=== PATIENT | female | born 1950 | race Caucasian/White ===

== ENCOUNTER → 2017-12-12 | Outpatient (CLI) | payer MEDICARE, BC ==
[2017-12-12 09:12] LABS: Basophils # (A) 0.1 k/uL (0-0.2); Basophils % (A) 1 %; Eosinophils # (A) 0.1 k/uL (0-0.7); Eosinophils % (A) 2 %; HCT 38.2 % (34.0-46.0); HGB 13.1 gm/dL (11.4-16.0); Lymphocytes # (A) 1.6 k/uL (1.0-4.8); Lymphocytes % (A) 27 %; MCH 29.4 pg (25.0-35.0); MCHC 34.3 g/dL (31.0-37.0); MCV 85.7 fL (80.0-100.0); Mean Platelet Volume 6.5; Monocytes # (A) 0.3 k/uL (0-1.0); Monocytes % (A) 5 %; Neutrophils % (A) 64 %; Platelet Count 247 k/uL (150-450); RBC 4.46 m/uL (3.80-5.40); WBC 6.2 k/uL (3.8-10.6)
--- NOTE | 2017-12-12 09:24 | XR ---
EXAMINATION TYPE: XR chest 2V DATE OF EXAM: 12/12/2017 COMPARISON: NONE HISTORY: Preoperative examination. TECHNIQUE: Frontal and lateral views of the chest are obtained. FINDINGS: There is no focal air space opacity, pleural effusion, or pneumothorax seen. Mild left hem idiaphragm elevation and right hemidiaphragm eventration are incidentally seen. The cardiac silhouet te size is within normal limits. The osseous structures are intact. Minimal multilevel degenerative changes of the thoracic spine are seen. IMPRESSION: No acute cardiopulmonary process.
[2017-12-12 09:25] LABS: Calcium 9.9 mg/dL (8.4-10.2); Potassium 3.9 mmol/L (3.5-5.1)
[2017-12-12 09:26] LABS: Prothrombin Time 9.6 sec (9.0-12.0)
[2017-12-12 09:35] LABS: Partial Thromboplastin Time 21.1 sec (22.0-30.0)
[2017-12-12 11:14] LABS: Amorphous Sediment,Urine Occasional /hpf; Appearance,Urine Cloudy (Clear); Bacteria,Urine Rare /hpf; Bilirubin,Urine Negative (Negative); Blood,Urine Negative (Negative); Color,Urine Yellow; Glucose,Urine (UA) Negative (Negative); Hyaline Casts,Urine 7 /lpf (0-2); Ketones,Urine Trace (Negative); Leukocyte Esterase,Urine Small (Negative); Mucus,Urine Few /hpf; Nitrite,Urine Negative (Negative); Protein,Urine 1+ (Negative); RBC,Urine <1 /hpf (0-5); Specific Gravity,Urine 1.026 (1.001-1.035); Squamous Epithelial Cell,Urine 16 /hpf (0-4); WBC,Urine 5 /hpf (0-5)
== END | disposition home or self-care (01) ==
LOC: LABPAT 08:20
PROVIDERS: ATTEND Orthopaedic Surgery Orthopaedic Surgery of the Spine
DX: Z01.818 Encounter for other preprocedural examination (principal); Z01.812 Encounter for preprocedural laboratory examination; M48.061 Spinal stenosis, lumbar region without neurogenic claudication; Z79.01 Long term (current) use of anticoagulants
CPT/HCPCS: 36415; 71046; 80048; 81001; 85025; 85610; 85730; 86850; 86900; 86901; 87070; 93005

== ENCOUNTER 2017-12-22 09:28 | Inpatient (IN) | payer MEDICARE, BC ==
[2017-12-10 13:17] VITALS: BMI 35.7
[~2017-12-22 09:28] MED LIST: BACITRACIN 50,000 UNIT, POLYMYXIN B 500,000 UNIT in SODIUM CHLORIDE 0.9% IRRIGATIO 1,00... IRRIGATION ONE; DEXAMETHASONE SOD PHOSPHATE 10 MG/ML 1 ML VIAL IV ONE; LIDOCAINE 1% 20 ML VIAL (10MG/ML) FOR IV START INTRADERMA PRN; MIDAZOLAM 2 MG/2 ML VIAL IV PRN; SCOPOLAMINE 1.5MG/72HR PATCH TRANSDERM ONE; ceFAZolin IN SWFI 2 GM/20 ML SYRINGE IVP ONE; fentaNYL (PF) 50 MCG/ML 2 ML AMP IV PRN
[2017-12-22] MEDS: LACTATED RINGERS 1,000 ML IV SCH ×2 (10:55→18:16)
[2017-12-22] MEDS ORDERED: ONDANSETRON 4 MG/2 ML VIAL IVP ONE (11:25)
[2017-12-22] MEDS ORDERED: ONDANSETRON 4 MG/2 ML VIAL ONE (11:28)
[2017-12-22] MEDS ORDERED: MIDAZOLAM 2 MG/2 ML VIAL ONE ×2 (11:33→12:28)
[2017-12-22] MEDS ORDERED: VECURONIUM 10 MG VIAL IV ONE (12:28)
[2017-12-22] MEDS ORDERED: ePHEDrine SULFATE/0.9% NACL/PF 50 MG/5 ML SYRINGE IV ONE (12:28)
[2017-12-22] MEDS ORDERED: PROPOFOL 10 MG/ML 20 ML VIAL IV ONE (12:28)
[2017-12-22] MEDS ORDERED: NEOSTIGMINE 1 MG/ML 10 ML VIAL ONE (12:28)
[2017-12-22] MEDS ORDERED: HYDROmorphone (PF) 1 MG/ML ONE (12:28)
[2017-12-22] MEDS ORDERED: HEPARIN SODIUM,PORCINE 10,000 UNIT/ML 1 ML VIAL ONE (12:28)
[2017-12-22] MEDS ORDERED: fentaNYL (PF) 50 MCG/ML 2 ML AMP ONE (12:28)
[2017-12-22] MEDS ORDERED: LIDOCAINE 1% INJ 10MG/ML (20 ML MDV) ONE (12:28)
[2017-12-22] MEDS ORDERED: KETAMINE 10 MG/ML 20 ML VIAL ONE (12:28)
[2017-12-22] MEDS ORDERED: LACTATED RINGERS 1,000 ML BAG IV ONE (12:28)
[2017-12-22] MEDS ORDERED: GLYCOPYRROLATE 0.2 MG/ML 2 ML VIAL ONE (12:28)
[2017-12-22] MEDS ORDERED: BUPIVACAINE (PF) 0.5% 30 ML VIAL SQ ONE (13:12)
[2017-12-22] MEDS ORDERED: GELATIN SPONGE,ABSORB (SMALL) 1 EACH SPONGE TOPICAL ONE (13:22)
[2017-12-22] MEDS ORDERED: THROMBIN (BOVINE) 5,000 UNIT VIAL TOPICAL ONE (13:22)
[2017-12-22] MEDS ORDERED: LACTATED RINGERS 1,000 ML IV ONE ×2 (14:03→16:29)
[2017-12-22] MEDS ORDERED: BENZOCAINE/MENTHOL LOZENG 1 EACH LOZENGE MUCOUS MEM PRN (17:03)
[2017-12-22] MEDS ORDERED: HYDROcodone/APAP 5-325MG 1 EACH TAB PO PRN (17:03)
[2017-12-22] MEDS ORDERED: ONDANSETRON 4 MG/2 ML VIAL IVP PRN (17:03)
[2017-12-22] MEDS ORDERED: HYDROmorphone 0.5 MG/0.5 ML SYRINGE IVP PRN (17:03)
[2017-12-22] MEDS ORDERED: MAGNESIUM HYDROXIDE 2,400 MG/10 ML CUP PO PRN (17:03)
[2017-12-22] MEDS ORDERED: FAMOTIDINE 20 MG TAB PO PRN (17:07)
--- NOTE | 2017-12-22 17:21 | P.OP ---
Date of Procedure: 12/22/17 Preoperative Diagnosis: Degenerative spinal scoliosis Spinal stenosis L2-3 L3 4 L4 5 Degenerative disc disease Neurogenic claudication Low back pain Lower extremity radiculopathy Postoperative Diagnosis: Degenerative spinal scoliosis Spinal stenosis L2-3 L3 4 L4 5 Degenerative disc disease Neurogenic claudication Low back pain Lower extremity radiculopathy Anesthesia: GETA Pathology: none sent Condition: stable Disposition: PACU Description of Procedure: DESCRIPTION OF PROCEDURE(S): BRIEF OPERATIVE NOTE Preoperative Diagnosis: Degenerative spinal scoliosis Spinal stenosis L2-3 L3 4 L4 5 Degenerative disc disease Neurogenic claudication Low back pain Lower extremity radiculopathy Postoperative Diagnosis: Same Procedure: Minimally invasive Laminectomy and decompression bilaterally L2-3 L3 4 L4 5 Minimally invasive Posterior lateral decompression and facet fusion L2-3 L3 4 L4 5 Minimally invasive Transforaminal lumbar interbody fusion for a 360 fusion L2-3 L3 4 L4 5 Discectomy for decompression L3 4 L4 5 Placement of interbody graft L3 4 L4 5 Local autogenous bone grafting Harvesting of bone marrow aspirate via the pedicle of L2 on the right Use of Cell Saver Use of bone graft extenders Surgeon: Dr. Polanco Feather Drying Machine Operator: Didier REYES who is present throughout the entire the case persistence during positioning, dissection, exposure, visualization, and all crucial elements of the case as well as closure. Anesthesia: General anesthesia Estimated blood loss: approximately 500 mL with 200 given back through Cell Saver Complications: None apparent Components implanted: K2M minimally invasive [place] pedicle screw system with 8 screws measuring 6.5 x 45 mm in length and 2 rods and 2 [place] interbody titanium cages with 1 osteal amp sponge and 30 mL of DBX bone fibers to supplement the local autogenous bone graft and bone marrow aspirate Disposition: To recovery room in good stable condition. OPERATIVE INDICATIONS The patient has had long-standing issues in their lower back and lower extremities. she is found to have degenerative scoliosis with asymmetric disc degeneration and spinal stenosis which correlated well with her low back and lower extremity symptoms. She had been through extensive conservative treatment however failed conservative management and exhausted conservative care. The patient has been through conservative treatment. We discussed various treatment options including surgery, and the patient wishes to proceed with surgery We discussed the risk, patient's alternatives and benefits of surgery including but not limited to, risk of bleeding risk of infection, risk of need for further surgery, risk of decreased, loss of motion, muscle function , malunion nonunion, hardware failure, nerve damage, paralysis, heart attack, blindness and . OPERATIVE SUMMARY After discussing all the risks, patient alternatives and benefits at length, the patient elected to proceed with surgical intervention, signed informed consent, and presented for their procedure. The patient was seen and examined in the preoperative holding area and the surgical site was marked. The patient was given antibiotics and brought to the operating room. The patient was sedated and intubated by anesthesia in standard fashion. The patient was positioned on to the operating room table in a prone position on the appropriate frame which was well-padded and well molded. We were careful to pad any bony prominences and pressure points. We were careful to maintain the patient's cervical spine and good neutral alignment and position throughout. The patient was prepped and draped in a normal standard fashion. An appropriate timeout and keystone protocol performed. We were able to proceed with the surgery. The local wound area was infiltrated with local anesthetic. I was able utilize C-arm guidance to establish appropriate position over the pedicles bilaterally at the appropriate levels at L2-3 4 and 5 . With the appropriate levels confirmed was able to make small stab incisions over the appropriate pedicle sites bilaterally. Utilizing C-arm in his house able to establish a Jamshidi needle over the lateral aspect of the pedicle and advanced the trocar into the pedicle being careful not to breech superiorly inferiorly medially or laterally. Position was confirmed regularly with AP and lateral images on C-arm. I was able to establish the trocar into the pedicle appropriately into the posterior aspect of the vertebral body bilaterally at the appropriate levels. at L2 on the right I was able to draw up approximately 20 mL of bone marrow aspirate from the vertebral body to be used to supplement the bone grafts. I was able place trochars appropriately bilaterally at L2 3 4 and 5.This was done at each of the pedicle positions and each of the vertebrae. I was able place the guidewire into the trocar and into the vertebral body appropriately under C-arm guidance. Dissection was taken down over the wire to the appropriate starting position for the screw placed. The appropriate length screw was chosen, threaded over the guidewire and screwed appropriately into the pedicle and vertebral body under C-arm guidance in excellent alignment and position with good bony purchase. This is done at each of the screw sites at the appropriate levels of L2-3 4 and 5 . With the screws intact I extended the incision to connect the screw hole sites on the most symptomatic side on the right . I started at L4 5 and then moved up to L3 4. I dissected down to establish access over the pars and lamina to the base of the spinous process. I was able to expose the facet joint. The capsule the facet was taken down and showed some facet arthrosis at the joint. I was able to use a combination of curettes and Kerrison rongeurs and a high- speed drill to take down the facet joint and do a facetectomy. Partial laminectomy was also performed. I was able get excellent foraminal decompression and central decompression with undermining across midline to perform a laminectomy centrally and contralaterally. As able get good central decompression. The ligamentum flavum was taken down to further decompress centrally and at bilateral neural foramen. I was able to perform this decompression at L2-3 and L3 4 and L4 5. The disc was fairly neutral at L2-3 and I decided to forego the discectomy and interbody device. At L3 4 and L4 5 and proceeded with discectomy and interbody fusion. I was able to expose the disc space and visualize the traversing nerve root. Note was made of some disc protrusion at the level causing further compression of the nerve root. I was able to establish a annulotomy at the appropriate level protecting soft tissue and neural structures. Note was made of some disc desiccation at the disc. I performed a complete discectomy with accommodation of curettes and rasps and scrapers. I was able get good endplate preparation at the disc space. I sized for the appropriate size interbody spacer protecting the soft tissue and neural structures. The wound was copiously irrigated and suctioned dry. There is no evidence of any dural tear or leak. I was able to pack the disc space with local autogenous bone graft as well as a small amount of bone graft which was also placed into the interbody cage itself. Protecting the soft tissue structures and neural structures I was able place the interbody cage in good alignment and good position with good fit and fill at the interbody spaceAt L3 4 and L4 5 . His issues was confirmed with C- arm guidance. Good hemostasis maintained. There is no evidence of any dural tear or leak. The wound was irrigated and suctioned dry. With the hardware intact, intraoperative C-arm imaging was again taken which showed good alignment and position of the hardware at the appropriate levelsat L2-3 L3 4 and L4 5 . We were then able to measure, contour and place the rods and appropriate hardware bilaterally. I was able to place capcrews, tighten them down, and torque them with the torque screwdriver appropriately. With this intact I was able to place the local autogenous bone graft with additional bone graft enhancer as necessary into the posterior lateral gutters over the decorticated transverse processes. The remainder of the bone graft was placed over the facet joint which was decorticated appropriately at L2-3 L3 4 and L4 5 on the contralateral side after taking down the facet joint capsule. With the bone graft intact, a stable construct, and good decompression at the appropriate levels, we were able to proceed with closure. Good hemostasis was maintained. There is no evidence of dural tear or leak. The fascia was closed for a watertight closure. he subcuticular tissue was closed with absorbable suture. The wound was cleaned and dried and dressed with the appropriate dressing. The drapes were broken down. The patient was gently rolled back onto their hospital bed being careful to maintain their cervical spine and good neutral alignment and position. They were woken up by anesthesia, extubated, and brought to the recovery room in good stable condition. The patient will be admitted to the hospital for appropriate postoperative care , medical management and monitoring. We will continue to follow them closely about the postoperative course.
[2017-12-22] MEDS: HYDROmorphone 0.5 MG/0.5 ML SYRINGE IVP PRN ×5 (18:17→23:35)
[2017-12-22] MEDS: SODIUM CHLORIDE 0.9% 1,000 ML IV SCH (19:49)
[2017-12-22] MEDS: ceFAZolin IN SWFI 2 GM/20 ML SYRINGE IVP SCH (19:49)
[2017-12-22] MEDS: DOCUSATE 100 MG CAP PO SCH (21:10)
[2017-12-22] MEDS: cycloSPORINE 0.05% OPHTH 0.4 ML DROPERETTE BOTH EYES SCH (21:10)
[2017-12-22] MEDS: NITROFURANTOIN MONOHYD/M-CRYST 100 MG CAP PO SCH (21:10)
[2017-12-23] MEDS: HYDROcodone/APAP 5-325MG 1 EACH TAB PO PRN ×5 (01:51→22:33)
[2017-12-23] MEDS: ceFAZolin IN SWFI 2 GM/20 ML SYRINGE IVP SCH (03:49)
[2017-12-23] MEDS: HYDROmorphone 0.5 MG/0.5 ML SYRINGE IVP PRN (03:51)
--- NOTE | 2017-12-23 04:29 | CONS ---
CONSULTATION DATE OF SERVICE: 12/22/2017 REASON FOR CONSULTATION: Advice regarding hypertension, and multiple medical issues requested by Dr. Polanco. HISTORY OF PRESENT ILLNESS: This 67-year-old woman with a past medical history of GERD, hypertension, DJD being followed by Dr. Coy Cool in the outpatient setting underwent minimally invasive laminectomy and decompression bilaterally L2-3, L3-4, L4-5 for severe degenerative joint disease and spinal stenosis L2-3, L4-L5 at L3-4, L4-[address] Polanco. The patient being closely monitored. There is no history of chest pain. No palpitations, headache, loss of consciousness, nausea and diarrhea at this time. PAST MEDICAL HISTORY: GERD, hypertension and DJD. MEDICATIONS: Prior to admission include home medications are: 1. Restasis 1 application both eyes b.i.d. 2. Coenzyme Q 200 mg p.o. daily. 3. Macrobid 1 tab p.o. b.i.d. 4. Toprol-XL 25 mg. 5. Cozaar 50 mg p.o. 6. Claritin 10 mg p.o. daily. 7. Motrin 600 mg q.6h p.r.n. 8. HydroDIURIL 25 mg p.o. daily. 9. Fish oil 1 p.o. daily. 10.Pepcid 20 mg b.i.d. p.r.n. 11.Colace 100 mg p.o. q.h.s. 12.Vitamin D3 2000 daily. 13.Vitamin D3 1 tab p.o. daily. 14.Aspirin 81 mg p.o. daily. ALLERGIES: NIACIN AND LISINOPRIL AND SCALLOPS. FAMILY HISTORY: History of cancer in the family. SOCIAL HISTORY: No history of smoking. No history of alcohol intake. REVIEW OF SYSTEMS: ENT: No diminished vision or hearing. Cardio system: No angina or palpitations. Respiratory: No cough or hemoptysis. GI no nausea. : No dysuria or hematuria. Nervous system: No numbness or weakness. Allergy/Immunology: No asthma or hayfever. Musculoskeletal as mentioned earlier. Hematology no history of anemia. Endocrine no history of diabetes or hypothyroidism. Constitutional: As mentioned earlier. Dermatology: Negative. Rheumatology: Negative. Psychiatry: As mentioned earlier. PHYSICAL EXAMINATION: Alert oriented x2. Pulse is 53, blood pressure 103/64, respirations normal. Pulse ox 100% on room air. HEENT: Conjunctivae normal. Oral mucosa moist. NECK is no jugular venous distention. No carotid bruit. No lymph node enlargement. CARDIOVASCULAR: S1, S2 muffled. RESPIRATIONS: Breath sounds diminished in the bases. No rhonchi and no crackles. ABDOMEN: Soft, nontender. LEGS: No edema and no swelling. CENTRAL NERVOUS SYSTEM: No focal deficits. BACK: Status post surgery. LABS: Done recently. CBC and BMP outpatient within normal limits. UA noted. ASSESSMENT: 1. Status post laminectomy and decompression L2-3, L3-4, L4-5 for severe degenerative joint disease and spinal stenosis. 2. Hypertension. 3. History of gastroesophageal reflux disease. 4. Degenerative joint disease. RECOMMENDATIONS AND DISCUSSION: In this 67-year-old woman who presented with multiple complex medical issues at this time I recommend continue the current medications. Resume the home medications. DVT prophylaxis. Incentive spirometry. Monitor blood pressure. Closely follow the patient closely with you. The patient may be asked to follow with Dr. Coy Cool closely. Thank you, Dr. Polanco, for letting us participate in the care of this patient. MMODL / IJN: [id number] /
[2017-12-23] MEDS: SODIUM CHLORIDE 0.9% 1,000 ML IV SCH ×2 (05:49→16:57)
[2017-12-23 07:29] LABS: Basophils % (A) 0 %; Eosinophils # (A) 0.1 k/uL (0-0.7); Eosinophils % (A) 1 %; HCT 32.1 % (34.0-46.0); HGB 10.5 gm/dL (11.4-16.0); Lymphocytes # (A) 0.9 k/uL (1.0-4.8); Lymphocytes % (A) 8 %; MCH 28.7 pg (25.0-35.0); MCHC 32.8 g/dL (31.0-37.0); MCV 87.6 fL (80.0-100.0); Monocytes # (A) 0.9 k/uL (0-1.0); Monocytes % (A) 9 %; Neutrophils # (A) 8.2 k/uL (1.3-7.7); Neutrophils % (A) 81 %; Platelet Count 179 k/uL (150-450); Poikilocytosis Slight; RBC 3.67 m/uL (3.80-5.40); RDW 14.2 % (11.5-15.5); WBC 10.1 k/uL (3.8-10.6)
--- NOTE | 2017-12-23 07:50 | XR ---
Fluoroscopy INDICATION: Pain FINDINGS: Fluoroscopy time: 2 minutes 9 seconds. Images obtained: 3. IMPRESSIONS: 1. Documentation of fluoroscopy.
[2017-12-23 07:55] LABS: Anion Gap 7 mmol/L; Blood Urea Nitrogen 10 mg/dL (7-17); Calcium 8.1 mg/dL (8.4-10.2); Carbon Dioxide 27 mmol/L (22-30); Chloride 103 mmol/L (98-107); Glucose 103 mg/dL (74-99); Potassium 4.1 mmol/L (3.5-5.1); Sodium 137 mmol/L (137-145)
[2017-12-23] MEDS: cycloSPORINE 0.05% OPHTH 0.4 ML DROPERETTE BOTH EYES SCH ×2 (08:15→21:12)
[2017-12-23] MEDS: METOPROLOL SUCCINATE (ER) 25 MG TAB.ER.24H PO SCH (08:16)
[2017-12-23] MEDS: LORATADINE 10 MG TAB PO SCH (08:16)
[2017-12-23] MEDS: NITROFURANTOIN MONOHYD/M-CRYST 100 MG CAP PO SCH ×2 (08:16→20:54)
[2017-12-23] MEDS: CHOLECALCIFEROL 1,000 UNIT TAB PO SCH (08:16)
[2017-12-23] MEDS: LOSARTAN 50 MG TAB PO SCH (08:16)
[2017-12-23] MEDS: ASPIRIN 81 MG PO SCH (08:16)
[2017-12-23] MEDS: HYDROCHLOROTHIAZIDE 25 MG TAB PO SCH (08:17)
--- NOTE | 2017-12-23 08:45 | P.PN ---
Progress Note - Text Progress Note Date: 12/23/17 Orthopedic Spine Patient is a pleasant 67-year-old female who is seen and examined at the bedside following posterior lateral decompression and fusion performed yesterday. Patient states they are doing ok postsurgically. She does have significant pain at the surgical sites most significant on the right. She denies any lower extremity weakness or radiculopathy. She does feel she is ready to get out of bed this morning. She has not eaten this morning as they have not brought her breakfast yet. Her Skinner catheter continues to be intact. Currently does not complain of nausea, vomiting, fever, or chills. Patient states pain has been adequately controlled. She states she is optimistic about her process proceeding forward postsurgically and is ready to increase ambulation. Skinner catheter remains intact. Patient states she does have a history of some urinary tract infections in the past. She is not currently experiencing any pain with the catheter intact. Physical Exam Lumbar Fusion: Status post surgical day number 1 Patient is awake, alert, and oriented 3 Vital signs stable Good chest excursion with deep inspiration and expiration Abdomen soft nontender Dorsiflexion, plantarflexion, and extensor hallucis longus positive sustained bilaterally No signs or symptoms of DVT; no calf pain; pneumatic cuffs intact bilateral lower extremities Dressing is dry and intact with areas of dried blood centrally on the dressing over the incision sites without active drainage; no erythema, purulence, or signs of infection Neurovascularly intact bilaterally lower extremities Skinner catheter intact; urine appears cloudy with some residue and some evidence of blood Assessment: Minimally invasive posterior lateral decompression and fusion L2-3, L3-4, L4-5 Transforaminal lumbar interbody fusion L3-4 and L4-5 Possible urinary tract infection; urine appears cloudy with residue and evidence of blood Plan: 1. Ambulate as tolerated; work with Physical Therapy to increase mobilization 2. Continue pain control with IV and oral medications 3. Dressing to remain intact; dressing will be changed tomorrow to nonstick Telfa and Tegaderm 4. We will plan to obtain a urinalysis for further evaluation for possible urinary tract infection 5. Dr. Baez in medicine will continue to manage patient for patient's other medical issues 6. We will continue to follow the patient closely 7. Patient can follow-up with Didier Luque PA-C or Dr. Gil Polanco at [facility] in 2-3 weeks following discharge
[2017-12-23] MEDS ORDERED: CALCIUM CARBONATE PO SCH (09:00)
[2017-12-23] MEDS ORDERED: VITAMIN D3 PO SCH (09:00)
[2017-12-23] MEDS ORDERED: NON-FORMULARY DRUG (Fish Oil/Dha/Epa [Fish Oil 1,200 Mg Fish Oil] 1 EACH) PO SCH (09:00)
[2017-12-23] MEDS ORDERED: SENNOSIDES-DOCUSATE SODIUM 1 EACH TAB PO SCH (09:00)
[2017-12-23] MEDS ORDERED: NON-FORMULARY DRUG (Ubidecarenone [Co Q-10] 200 MG) PO SCH (09:00)
[2017-12-23] MEDS: SENNOSIDES-DOCUSATE SODIUM 1 EACH TAB PO SCH ×2 (12:12→20:53)
--- NOTE | 2017-12-23 15:50 | P.PN ---
Subjective Progress Note Date: 12/23/17 Progress note being dictated for Dr. Porras. Interval history: This a 67-year-old female status post laminectomy/ decompression and multiple other medical issues. Sitting up in chair, pain controlled. Ambulated a few steps around bed with PT this morning. No flatus, no bowel movement. Positive for hiccups. Mild nausea. Denies chest pain, palpitations or increased shortness of breath. Objective - Vital Signs Vital signs: Vital Signs Temp 98 F 12/23/17 07:25 Pulse 67 12/23/17 07:25 Resp 18 12/23/17 07:25 BP 119/73 12/23/17 07:25 Pulse Ox 94 L 12/23/17 08:17 Intake & Output 12/22/17 12/23/17 12/23/17 18:59 06:59 18:59 Intake Total 2401 Output Total 775 500 Balance 1626 -500 Intake: IV 2401 Output: Urine 275 500 Estimated Blood Loss 500 Other: Voiding Method Indwelling Catheter - Exam PHYSICAL EXAM: VITAL SIGNS: As above GENERAL: Sitting up in chair, no acute distress HEENT: Conjunctivae normal. eyes normal. Oral mucosa moist NECK: No JVD. No thyroid enlargement. No LNs CARDIOVASCULAR: S1, S2 muffled. No murmur RESPIRATION: Breath sounds diminished in the bases. No rhonchi or crackles. No bronchial breathing. ABDOMEN: Soft, nontender . No guarding. no masses palpable. Bowel sounds heard. LEGS: No edema. no swelling PSYCHIATRY: Alert and oriented -3, mood and affect normal. NERVOUS SYSTEM: Status post back surgery. Diffuse weakness No focal deficits. Skin: no ulcer no rash - Labs CBC & Chem 7: 12/23/17 06:59 12/23/17 06:59 Labs: Abnormal Lab Results - Last 24 Hours (Table) 12/23/17 12/23/17 Range/Units 06:59 06:59 RBC 3.67 L (3.80-5.40) m/uL Hgb 10.5 L (11.4-16.0) gm/dL Hct 32.1 L (34.0-46.0) % Neutrophils # 8.2 H (1.3-7.7) k/uL Lymphocytes # 0.9 L (1.0-4.8) k/uL Glucose 103 H (74-99) mg/dL Calcium 8.1 L (8.4-10.2) mg/dL Assessment and Plan Assessment: 1. Status post laminectomy and decompression L2-3, L3-L4, L4-5 for severe degenerative joint disease and spinal stenosis 2. Hypertension 3. Gastroesophageal reflux disease Plan: Continue on current medication regime , Zofran, Senokot, monitoring and symptomatic treatment. Aggressive pulmonary toileting with incentive spirometer reinforced. PT/OT. Further recommendations to follow. The impression and plan of care has been dictated as directed. : I performed a history and examination of this patient, discussed the same with the dictator. I agree with the dictator's note ,documented as a scribe. Any additional findings or plans will be noted.
[2017-12-23] MEDS: DIAZEPAM 5 MG TAB PO PRN ×2 (16:54→22:33)
[2017-12-23] MEDS: LACTATED RINGERS 1,000 ML IV SCH (16:55)
[2017-12-23 17:37] LABS: Amorphous Sediment,Urine Rare /hpf; Appearance,Urine Turbid (Clear); Bilirubin,Urine Negative (Negative); Blood,Urine Small (Negative); Color,Urine Yellow; Glucose,Urine (UA) Negative (Negative); Hyaline Casts,Urine 8 /lpf (0-2); Ketones,Urine 1+ (Negative); Leukocyte Esterase,Urine Large (Negative); Mucus,Urine Moderate /hpf; Nitrite,Urine Negative (Negative); PH, Urine 5.5 (5.0-8.0); Protein,Urine Trace (Negative); RBC,Urine 11 /hpf (0-5); Specific Gravity,Urine 1.017 (1.001-1.035); Squamous Epithelial Cell,Urine 2 /hpf (0-4); Urobilinogen,Urine <2.0 mg/dL (<2.0); WBC,Urine 20 /hpf (0-5)
[2017-12-23] MEDS: DOCUSATE 100 MG CAP PO SCH (20:54)
[2017-12-24] MEDS: DIAZEPAM 5 MG TAB PO PRN ×4 (04:36→22:34)
[2017-12-24] MEDS: HYDROcodone/APAP 5-325MG 1 EACH TAB PO PRN ×4 (04:36→22:33)
[2017-12-24] MEDS: SODIUM CHLORIDE 0.9% 1,000 ML IV SCH ×2 (04:37→21:01)
[2017-12-24] MEDS: LOSARTAN 50 MG TAB PO SCH (09:03)
[2017-12-24] MEDS: METOPROLOL SUCCINATE (ER) 25 MG TAB.ER.24H PO SCH (09:03)
[2017-12-24] MEDS: SENNOSIDES-DOCUSATE SODIUM 1 EACH TAB PO SCH ×2 (09:03→21:01)
[2017-12-24] MEDS: CHOLECALCIFEROL 1,000 UNIT TAB PO SCH (09:03)
[2017-12-24] MEDS: LORATADINE 10 MG TAB PO SCH (09:03)
[2017-12-24] MEDS: NITROFURANTOIN MONOHYD/M-CRYST 100 MG CAP PO SCH ×2 (09:03→20:57)
[2017-12-24] MEDS: ASPIRIN 81 MG PO SCH (09:03)
[2017-12-24] MEDS: HYDROCHLOROTHIAZIDE 25 MG TAB PO SCH (09:03)
[2017-12-24] MEDS: cycloSPORINE 0.05% OPHTH 0.4 ML DROPERETTE BOTH EYES SCH ×2 (09:04→20:57)
[2017-12-24] MEDS: LACTATED RINGERS 1,000 ML IV SCH (11:17)
--- NOTE | 2017-12-24 14:47 | P.PN ---
Subjective Progress Note Date: 12/24/17 Progress note being dictated for Dr. Porras. Interval history: This a 67-year-old female status post laminectomy/ decompression and multiple other medical issues. Sitting up in chair, pain controlled. Ambulated a few steps around bed with PT this morning. No flatus, no bowel movement. Positive for hiccups. Mild nausea. Denies chest pain, palpitations or increased shortness of breath. 12/24/2017 increase ambulation;ambulating with physical therapy to bathroom, tolerated exertion well. No further nausea. Passing flatus. No bowel movement. Pain controlled. Denies lightheadedness, dizziness or focal deficits. Denies chest pain, palpitations or shortness of breath. UA with elevated WBCs and leukocytes. Objective - Vital Signs Vital signs: Vital Signs Temp 98.0 F 12/24/17 05:22 Pulse 78 12/24/17 09:02 Resp 16 12/24/17 09:02 BP 131/59 12/24/17 09:02 Pulse Ox 98 12/24/17 09:02 Intake & Output 12/23/17 12/24/17 12/24/17 18:59 06:59 18:59 Intake Total 600 Output Total 2150 900 Balance 600 -2150 -900 Weight 91.626 kg Intake: Intake, IV Titration 600 Amount Sodium Chloride 0.9% 1, 600 000 ml @ 75 mls/hr IV . [id number] [facility] Rx#:[id number] Output: Urine 2150 900 Uretheral (Skinner) 900 Other: Voiding Method Indwelling Catheter Indwelling Catheter Indwelling Catheter # Voids 0 - Exam PHYSICAL EXAM: VITAL SIGNS: As above GENERAL: Sitting up in chair, no acute distress HEENT: Conjunctivae normal. eyes normal. Oral mucosa moist NECK: No JVD. No thyroid enlargement. No LNs CARDIOVASCULAR: S1, S2 muffled. No murmur RESPIRATION: Breath sounds diminished in the bases. No rhonchi or crackles. ABDOMEN: Soft, nontender . No guarding. no masses palpable. Positive Bowel sounds. LEGS: No edema. no swelling PSYCHIATRY: Alert and oriented -3, mood and affect normal. NERVOUS SYSTEM: Status post back surgery. Diffuse weakness No focal deficits. Skin: no ulcer no rash - Labs CBC & Chem 7: 12/23/17 06:59 12/23/17 06:59 Labs: Abnormal Lab Results - Last 24 Hours (Table) 12/23/17 Range/Units 17:00 Urine Appearance Turbid H (Clear) Urine Protein Trace H (Negative) Urine Ketones 1+ H (Negative) Urine Blood Small H (Negative) Ur Leukocyte Esterase Large H (Negative) Urine RBC 11 H (0-5) /hpf Urine WBC 20 H (0-5) /hpf Amorphous Sediment Rare H (None) /hpf Hyaline Casts 8 H (0-2) /lpf Urine Mucus Moderate H (None) /hpf Assessment and Plan Assessment: 1. Status post laminectomy and decompression L2-3, L3-L4, L4-5 for severe degenerative joint disease and spinal stenosis 2. Hypertension 3. Gastroesophageal reflux disease 4. Possible acute UTI Plan: Continue on current medication regime , Zofran, Senokot, monitoring and symptomatic treatment. Rocephin added to med regime for possible acute UTI. Aggressive pulmonary toileting with incentive spirometer reinforced. Further Evaluated by PT/OT, subacute rehab recommended at discharge, social work consulted. The impression and plan of care has been dictated as directed. : I performed a history and examination of this patient, discussed the same with the dictator. I agree with the dictator's note ,documented as a scribe. Any additional findings or plans will be noted.
[2017-12-24] MEDS: cefTRIAXone IN SWFI 1,000 MG/10 ML SYRINGE IVP SCH (16:03)
[2017-12-24] MEDS: DOCUSATE 100 MG CAP PO SCH ×2 (16:03→22:33)
--- NOTE | 2017-12-24 16:28 | P.PN ---
Progress Note - Text Progress Note Date: 12/24/17 Orthopedic Spine: Patient is a pleasant 67-year-old female who is seen and examined at the bedside following posterior lateral decompression and fusion performed Friday. Patient states she is doing better postsurgically today as compared to yesterday. She does have significant pain at the surgical sites most significant on the right but it has improved since yesterday. She denies any lower extremity weakness or radiculopathy. She does have some increased pain at the right posterior thigh. With the assistance of therapy, she has been able to get out of the bed and has been able to ambulate to the restroom. She is eating and voiding without difficulty. Her Skinner catheter has been discontinued. Urinalysis performed yesterday did show evidence of urinary tract infection. She continues to be seen by medicine who was started her on Rocephin. Physical Exam Lumbar Fusion: Status post surgical day number 2 Patient is awake, alert, and oriented 3 Vital signs stable Good chest excursion with deep inspiration and expiration Abdomen soft nontender Dorsiflexion, plantarflexion, and extensor hallucis longus positive sustained bilaterally No signs or symptoms of DVT; no calf pain; pneumatic cuffs intact bilateral lower extremities Dressing is dry and intact with areas of dried blood centrally on the dressing over the incision sites without active drainage; no erythema, purulence, or signs of infection Neurovascularly intact bilaterally lower extremities Skinner catheter has been discontinued Pertinent Studies: Urinalysis: Yellow, turbid, trace protein, 1+ ketones, small blood, large leukocyte esterase, 11 RBC, 20 WBC, amorpheus sediment, 8 Hyaline cast, and moderate urine mucus Assessment: Minimally invasive posterior lateral decompression and fusion L2-3, L3-4, L4-5 Transforaminal lumbar interbody fusion L3-4 and L4-5 Urinary tract infection Plan: 1. Ambulate as tolerated; work with Physical Therapy to increase mobilization 2. Continue pain control with IV and oral medications 3. Dressing to remain intact; dressing will be changed today to nonstick Telfa and Tegaderm 4. Patient does have evidence of urinary tract infection; continue with Rocephin as prescribed by medicine 5. Dr. Baez in medicine will continue to manage patient for patient's other medical issues 6. We will continue to follow the patient closely; Patient would like to be discharged home if she is able to without significant difficulty. We will continue to monitor her progress over the next few days. If she continues to recover slowly postsurgically, we may plan to have her discharged to a rehabilitation facility 7. Patient can follow-up with Didier Luque PA-C or Dr. Gil Polanco at [facility] in 2-3 weeks following discharge
[2017-12-25] MEDS: HYDROcodone/APAP 5-325MG 1 EACH TAB PO PRN ×3 (05:18→21:17)
[2017-12-25] MEDS: DIAZEPAM 5 MG TAB PO PRN ×2 (05:19→13:58)
[2017-12-25 07:28] LABS: Basophils % (A) 0 %; Eosinophils # (A) 0.2 k/uL (0-0.7); Eosinophils % (A) 2 %; HCT 29.3 % (34.0-46.0); HGB 10.1 gm/dL (11.4-16.0); Lymphocytes # (A) 1.1 k/uL (1.0-4.8); Lymphocytes % (A) 12 %; MCHC 34.5 g/dL (31.0-37.0); MCV 83.9 fL (80.0-100.0); Mean Platelet Volume 7.9; Monocytes # (A) 0.7 k/uL (0-1.0); Monocytes % (A) 7 %; Neutrophils # (A) 7.5 k/uL (1.3-7.7); Neutrophils % (A) 78 %; Platelet Count 164 k/uL (150-450); Poikilocytosis Slight; RBC 3.49 m/uL (3.80-5.40); WBC 9.7 k/uL (3.8-10.6)
[2017-12-25 07:57] LABS: Anion Gap 10 mmol/L; Blood Urea Nitrogen 6 mg/dL (7-17); Calcium 8.4 mg/dL (8.4-10.2); Carbon Dioxide 26 mmol/L (22-30); Chloride 104 mmol/L (98-107); Glucose 97 mg/dL (74-99); Potassium 3.4 mmol/L (3.5-5.1); Sodium 140 mmol/L (137-145)
[2017-12-25] MEDS: ASPIRIN 81 MG PO SCH (07:59)
[2017-12-25] MEDS: CHOLECALCIFEROL 1,000 UNIT TAB PO SCH (07:59)
[2017-12-25] MEDS: cefTRIAXone IN SWFI 1,000 MG/10 ML SYRINGE IVP SCH (07:59)
[2017-12-25] MEDS: METOPROLOL SUCCINATE (ER) 25 MG TAB.ER.24H PO SCH (08:00)
[2017-12-25] MEDS: cycloSPORINE 0.05% OPHTH 0.4 ML DROPERETTE BOTH EYES SCH ×2 (08:00→21:17)
[2017-12-25] MEDS: HYDROCHLOROTHIAZIDE 25 MG TAB PO SCH (08:00)
[2017-12-25] MEDS: DOCUSATE 100 MG CAP PO SCH ×2 (08:00→21:16)
[2017-12-25] MEDS: LOSARTAN 50 MG TAB PO SCH (08:01)
[2017-12-25] MEDS: LORATADINE 10 MG TAB PO SCH (08:01)
[2017-12-25] MEDS: NITROFURANTOIN MONOHYD/M-CRYST 100 MG CAP PO SCH ×2 (08:01→21:16)
[2017-12-25] MEDS: SENNOSIDES-DOCUSATE SODIUM 1 EACH TAB PO SCH ×2 (08:04→21:38)
--- NOTE | 2017-12-25 09:36 | P.PN ---
Progress Note - Text Progress Note Date: 12/25/17 Postoperative day #3 Patient is seen and examined today at bedside. The patient has some pain around the surgical site as expected, but she is making good improvements in terms of her mobility and her pain control. She is sitting up in a chair and she is able get out of bed to a chair essentially on her own today. She still does not feel safe when she is trying to move on her own and she does live by herself. She does have some pain at her right lower extremity as prior to her surgery but her strength is maintained. Pain is being controlled with medication. Physical Exam Afebrile with stable vital signs Abdomen is soft nontender. Chest has good excursion deep and space expiration The incision site is clean dry and intact. No erythema there is no purulence. Dressing is clean and dry and there is no evidence of any infection Extremities have not had neurologic change from prior to surgery. She has sustained dorsal flexion plantarflexion and EHL intact Calves and thighs were soft nontender without evidence of DVT. Assessment/Plan Postoperative day #3 status post decompression and fusion at L2-3 L3 4 and L4 5 for her spinal stenosis with degenerative scoliosis and listhesis Patient is progressing as expected from the surgery. She had multilevel decompression and fusion which certainly takes time for recovery. She is moving better and better each day and I think she'll be okay for discharge home today when she feels more safe and workup will with her mobility on her own. Her pain control has been managed appropriately and she is doing better now with oral medications we'll plan syndrome with oral medications. We gave her a start talking form and discussed with her and she signed the opioid start talking form appropriately. We will continue to increase the patient's mobilization with therapy. We will continue pain control with oral or IV medications. We'll continue to follow patient closely. I think she'll be okay for discharge home tomorrow on Friday
[2017-12-25] MEDS ORDERED: BISACODYL 10 MG SUPP RECTAL PRN (14:28)
[2017-12-25] MEDS: SODIUM CHLORIDE 0.9% 1,000 ML IV SCH ×2 (17:07→21:20)
[2017-12-26] MEDS: HYDROcodone/APAP 5-325MG 1 EACH TAB PO PRN ×2 (06:57→14:17)
[2017-12-26 07:40] VITALS: BP 131/66; PULSE 75; RESP 18; TEMP 98
[2017-12-26] MEDS: HYDROCHLOROTHIAZIDE 25 MG TAB PO SCH (08:04)
[2017-12-26] MEDS: METOPROLOL SUCCINATE (ER) 25 MG TAB.ER.24H PO SCH (08:04)
[2017-12-26] MEDS: CHOLECALCIFEROL 1,000 UNIT TAB PO SCH (08:04)
[2017-12-26] MEDS: DOCUSATE 100 MG CAP PO SCH (08:04)
[2017-12-26] MEDS: cycloSPORINE 0.05% OPHTH 0.4 ML DROPERETTE BOTH EYES SCH (08:04)
[2017-12-26] MEDS: NITROFURANTOIN MONOHYD/M-CRYST 100 MG CAP PO SCH (08:04)
[2017-12-26] MEDS: LOSARTAN 50 MG TAB PO SCH (08:04)
[2017-12-26] MEDS: cefTRIAXone IN SWFI 1,000 MG/10 ML SYRINGE IVP SCH (08:05)
[2017-12-26] MEDS: LORATADINE 10 MG TAB PO SCH (08:05)
[2017-12-26] MEDS: ASPIRIN 81 MG PO SCH (08:05)
--- NOTE | 2017-12-26 08:58 | P.DS ---
Providers Date of admission: 12/22/17 10:30 Expected date of discharge: 12/26/17 Attending physician: Bridget Polanco Consults: 12/22/17 17:03 Consult Physician Routine Consulting Provider: Mary Baez Consult Reason/Comments: Medical management Do you want consulting provider notified?: Yes Primary care physician: Stated None - Discharge Diagnosis(es) (1) Low back pain Current Visit: Yes Status: Acute (2) Radiculopathy with lower extremity symptoms Current Visit: Yes Status: Acute (3) Degenerative scoliosis Current Visit: Yes Status: Acute (4) Lumbar degenerative disc disease Current Visit: Yes Status: Acute (5) Neurogenic claudication Current Visit: Yes Status: Acute (6) Lumbar stenosis Current Visit: Yes Status: Acute (7) Urinary tract infection Current Visit: Yes Status: Acute Hospital Course: This is a pleasant 67-year-old female who presented with L2-3, L3-4, and L4-5 spinal canal stenosis, lumbar degenerative disc disease, degenerative scoliosis ; neurogenic claudication, and low back pain with lower extremity radiculopathy who failed outpatient conservative therapy. She was admitted for a minimally invasive posterior lateral decompression and fusion L2-3, L3-4, L4-5 with transforaminal lumbar interbody fusion at L3-4 and L4-5. Patient has been progressing slowly postsurgically but has had some improvement over the past couple days. Her pain is better controlled at surgical sites. She continues to feel generally weak and has difficulty with getting out of bed and ambulating to the restroom on her own. She'll plan to be discharged to [facility]. This has been discussed with cage management. Patient does feel she is ready for discharge today. Condition on day of discharge stable. Patient will be discharged to rehabilitation study prior to returning home. Patient was cleared preoperatively for surgery. Patient currently denies any nausea, vomiting, fever, or chills. Patient is eating and voiding freely without difficulty. She was able to have a bowel movement this morning. Patient may shower Tegaderm dressing intact. Patient may remove Tegaderm dressing in 3 days and shower without a dressing at that time. Patient should keep Steri-Strips intact and allow them to fall off naturally. Patient should refrain from driving until at least after their first follow-up appointment in the office. Patient should avoid excessive bending, lifting, and twisting; no lifting greater than 10 pounds. Patient was prescribed Owen 5 mg S3 25 mg 1-2 tabs every 6 hours as needed for pain, dispense #[address] Gil Polanco. An opioid start talking form was discussed and signed by both Dr. Gil Polanco and the patient. This prescription was directly sent to her pharmacy. After deciding to discharge to rehabilitation facility, a new prescription will be written by hand to she is able to obtain pain medication while in a rehabilitation facility. [facility] has previously been reviewed by Dr. Gil Polanco. She'll be given a prescription written for Owen 5 mg/325 mg 1-2 tabs every 6 hours as needed for pain, dispense #90. We'll plan for medicine to complete her med rec prior to discharge. She continues to be treated by medicine for urinary tract infection. Physical Exam on day of discharge: Patient is awake, alert, and oriented 3 Vital signs stable Good chest excursion with deep inspiration and expiration Abdomen soft nontender No signs or symptoms of DVT; no calf pain Extensor hallucis longus, plantarflexion, and dorsiflexion positive sustained bilateral lower extremities Incision is clean, dry, and intact; no erythema, purulence, or signs of infection Tegaderm dressing and non-stick Telfa intact Procedures: Minimally invasive posterior lateral decompression and fusion L2-3, L3-4, and L4 -5 with transforaminal lumbar interbody fusion at L3-4 and L4-5. Patient Condition at Discharge: Stable Plan - Discharge Summary Discharge Rx Participant: Yes New Discharge Prescriptions: New HYDROcodone/APAP 5-325MG [Owen 5-325] 1 - 2 tab PO Q6HR PRN #90 tab PRN Reason: Severe Pain Hydrocodone/Acetaminophen [Owen 5-325] 1 - 2 each PO Q6HR PRN #90 tab PRN Reason: Pain No Action Loratadine [Claritin] 10 mg PO DAILY Docusate [Colace] 100 mg PO HS Ibuprofen [Motrin] 600 mg PO Q6HR PRN PRN Reason: Pain Famotidine [Pepcid] 20 mg PO BID PRN PRN Reason: Heartburn Aspirin 81 mg PO DAILY cycloSPORINE [Restasis] 1 applicator BOTH EYES BID Metoprolol Succinate (ER) [Toprol Xl] 25 mg PO DAILY Hydrochlorothiazide [Hydrodiuril] 25 mg PO DAILY Ubidecarenone [Co Q-10] 200 mg PO DAILY Losartan Potassium [Cozaar] 50 mg PO DAILY Fish Oil/Dha/Epa [Fish Oil 1,200 mg Fish Oil] 1 cap PO DAILY Cholecalciferol (Vitamin D3) [Vitamin D3] 2,000 unit PO DAILY Calcium Carbonate/Vitamin D3 [Caltrate 600 Plus D3 Tablet] 1 tab PO DAILY Nitrofurantoin Monohyd/M-Cryst [Macrobid] 1 tab PO BID Discharge Medication List Aspirin 81 mg PO DAILY 12/10/17 [History] Calcium Carbonate/Vitamin D3 [Caltrate 600 Plus D3 Tablet] 1 tab PO DAILY [History] Cholecalciferol (Vitamin D3) [Vitamin D3] 2,000 unit PO DAILY 12/10/17 [History] Docusate [Colace] 100 mg PO HS 12/10/17 [History] Famotidine [Pepcid] 20 mg PO BID PRN 12/10/17 [History] Fish Oil/Dha/Epa [Fish Oil 1,200 mg Fish Oil] 1 cap PO DAILY 12/10/17 [History] Hydrochlorothiazide [Hydrodiuril] 25 mg PO DAILY 12/10/17 [History] Ibuprofen [Motrin] 600 mg PO Q6HR PRN 12/10/17 [History] Loratadine [Claritin] 10 mg PO DAILY 12/10/17 [History] Losartan Potassium [Cozaar] 50 mg PO DAILY 12/10/17 [History] Metoprolol Succinate (ER) [Toprol Xl] 25 mg PO DAILY 12/10/17 [History] Ubidecarenone [Co Q-10] 200 mg PO DAILY 12/10/17 [History] cycloSPORINE [Restasis] 1 applicator BOTH EYES BID 12/10/17 [History] Nitrofurantoin Monohyd/M-Cryst [Macrobid] 1 tab PO BID 12/22/17 [History] HYDROcodone/APAP 5-325MG [Owen 5-325] 1 - 2 tab PO Q6HR PRN #90 tab 12/25/17 [ Rx] Hydrocodone/Acetaminophen [Owen 5-325] 1 - 2 each PO Q6HR PRN #90 tab 12/26/17 [Rx] Follow up Appointment(s)/Referral(s): Didier Luque PAC [PHYSICIAN SAMPLE SUPERVISOR] - 2 Weeks (Patient may follow-up with Didier Luque PA-C or Dr. Gil Polanco at [facility] in 2-3 weeks following discharge. ) Care Plan Goals (MU): 1. Patient may shower with Tegaderm dressing intact. 2. Patient may remove Tegaderm dressing in 3 days and shower without a dressing at that time. 3. Patient should keep Steri-Strips intact and allow them to fall off naturally. 4. Patient should refrain from driving until at least after their first follow- up appointment in the office. 5. Patient should avoid excessive bending, twisting, and lifting; no lifting greater than 10 pounds 6. Take medications as prescribed 7. Do not soak in tub Discharge Disposition: TRANSFER TO SNF/ECF
[2017-12-26] MEDS: SENNOSIDES-DOCUSATE SODIUM 1 EACH TAB PO SCH (15:36)
--- NOTE | 2017-12-29 13:35 | CDI ---
Documentation Clarification Form Date: 12/29/2017 12:00:00 AM From: JINA Gray; [employer] Specialist Phone: If you have a question about this query, please contact [employer] at [phone] between 8am and 5pm. Admit Date: 12/22/2017 10:30:00 AM Patient Name: Apurva Honeycutt Visit Number: [id number] Discharge Date: 12/26/2017 ATTENTION: The Clinical Documentation Specialists (CDI) and [facility] Coding Staff appreciate your assistance in clarifying documentation. Please respond to the clarification below the line at the bottom and electronically sign. The CDI & [facility] Coding staff will review the response and follow-up if needed. Please note: Queries are made part of the Legal Health Record. If you have any questions, please contact the author of this message via ITS. Dr. Bridget Polanco A diagnosis of UTI has been documented starting progress note dated 12/23/17. . Per documentation in the progress notes, this patient has intact indwelling Skinner catheter placed for surgical procedure dated 12/22/2017. Urinalysis: Large leukocyte, high RBC, high WBC Treatment: Rocephin In your professional opinion, can you please clarify the etiology of the UTI, if known? Skinner catheter UTI not related to catheter/urostomy Other condition, please specify Unable to determine The patient had had a UTI prior to admission. She was treated medically with antibiotics prior to surgery and during surgery as well as after surgery. I felt that her urinary tract infection had been cleared and that she was receiving further treatment prophylactically. She may have had some residual issues from her preoperative urinary tract infection which were picked up postoperatively and thus we pursued further medical treatment with antibiotic for this. This she did not seem to stems specifically from urinary catheter placed for surgery. MTDD
== END 2017-12-26 15:35 | DRG 454 ==
LOC: 2ORMAIN 10:30 → 5ONC 17:10
PROVIDERS: ADMIT Orthopaedic Surgery Orthopaedic Surgery of the Spine; ATTEND Orthopaedic Surgery Orthopaedic Surgery of the Spine
PROC: 0ST20ZZ Resection of Lumbar Vertebral Disc, Open Approach (ICD-10-PCS; principal; 2017-12-22 12:30)
PROC: 0SG10AJ Fusion of 2 or more Lumbar Vertebral Joints with Interbody Fusion Device, Posterior Approach, Anterior Column, Open Approach (ICD-10-PCS; principal; 2017-12-22 12:30)
PROC: 07DS3ZZ Extraction of Vertebral Bone Marrow, Percutaneous Approach (ICD-10-PCS; principal; 2017-12-22 12:30)
PROC: 0SG1071 Fusion of 2 or more Lumbar Vertebral Joints with Autologous Tissue Substitute, Posterior Approach, Posterior Column, Open Approach (ICD-10-PCS; principal; 2017-12-22 12:30)
DX: M51.16 Intervertebral disc disorders with radiculopathy, lumbar region (principal); N39.0 Urinary tract infection, site not specified; Z79.82 Long term (current) use of aspirin; Z79.899 Other long term (current) drug therapy; E78.5 Hyperlipidemia, unspecified; I10 Essential (primary) hypertension; H04.129 Dry eye syndrome of unspecified lacrimal gland; Z88.8 Allergy status to other drugs, medicaments and biological substances; Z91.013 Allergy to seafood; Z83.3 Family history of diabetes mellitus; Z82.49 Family history of ischemic heart disease and other diseases of the circulatory system; K21.9 Gastro-esophageal reflux disease without esophagitis; M41.86 Other forms of scoliosis, lumbar region; Z80.9 Family history of malignant neoplasm, unspecified; Z87.440 Personal history of urinary (tract) infections; M48.062 Spinal stenosis, lumbar region with neurogenic claudication
CPT/HCPCS: 72100; 80048; 81001; 85025; 86850; 86891; 86900; 86901; 94760

== ENCOUNTER → 2024-11-30 | Outpatient (CLI) | payer MEDICARE, BC ==
--- NOTE | 2024-11-30 16:30 | NM ---
EXAMINATION TYPE: NM DatScan Brain SPECT DATE OF EXAM: 11/30/2024 COMPARISON: NONE CLINICAL INDICATION: Female, 74 years old with history of R29.818 OTHER SYMPTOMS AND SIGNS INVOLVING THE NER; tremor, abnormal gait TECHNIQUE: 10 drops of Lugol's solution was administered 1 hour prior to injection as a thyroid bloc marta agent. After the administration of 4.5 mCi I-123 Ioflupane DaTscan. Images obtained [address] injection. SPECT images of the brain were acquired with axial and coronal reconstructions. FINDINGS: The exam is abnormal with marked diffuse increased background activity and symmetric blunted bilatera l corpus striatal activity. IMPRESSION: Abnormal findings which can be seen with Parkinson's disease or a parkinsonian syndrome. [facility], , 11/30/2024 4:28 PM
== END | disposition home or self-care (01) ==
LOC: RADNMMAIN 10:16
PROVIDERS: ATTEND Psychiatry & Neurology Neurology
DX: R29.818 Other symptoms and signs involving the nervous system (principal)
CPT/HCPCS: 78803; A9584